=== PATIENT | female | born 1990 | race Caucasian/White ===

== ENCOUNTER 2017-11-29 09:30 | Inpatient (IN) | payer OTHER ==
[~2017-11-29] VITALS: Ht 152.4 cm; Wt 3.6 kg
[~2017-11-29 09:30] MED LIST: NAPROXEN SODIU550 MG PO; Procardia Xl 30MG TAB PO; ZYRTEC10 MG PO
[2017-11-29] MEDS ORDERED: PRENATE ELITE1 EAC2 PO (10:43)
[2017-12-09] MEDS ORDERED: PERCOCET 5-3251 EACH PO (08:15)
== END 2017-12-09 12:55 | disposition home or self-care (01) | DRG 766 ==
LOC: O/R 12-06 06:30 → OB/GYN 12-06 06:30
PROVIDERS: Specialist
PROC: 0UB70ZZ Excision of Bilateral Fallopian Tubes, Open Approach (ICD-10-PCS; 2017-12-06)
PROC: 4A1HXCZ Monitoring of Products of Conception, Cardiac Rate, External Approach (ICD-10-PCS; 2017-12-06)
PROC: 10D00Z1 Extraction of Products of Conception, Low, Open Approach (ICD-10-PCS; principal; 2017-12-06 10:45)
DX: O34.211 Maternal care for low transverse scar from previous cesarean delivery (principal); O75.82 Onset (spontaneous) of labor after 37 completed weeks of gestation but before 39 completed weeks gestation, with delivery by (planned) cesarean section; Z3A.39 39 weeks gestation of pregnancy; Z37.0 Single live birth; Z30.2 Encounter for sterilization